=== PATIENT | male | born 1990 | race Caucasian/White ===

== ENCOUNTER 2022-12-06 22:46 | Emergency (ER) | payer OTHER ==
[2022-12-06 22:50] VITALS: BP 111/73; PULSE 77; RESP 20; TEMP 97.9
--- NOTE | 2022-12-06 23:05 | XR ---
EXAMINATION TYPE: XR hand complete LT DATE OF EXAM: 12/06/2022 10:58 PM INDICATION: Patient age:Male; 31 years old; Reason for study: pain; PHH. COMPARISON: None TECHNIQUE: Frontal, lateral and oblique views of the left hand were obtained. FINDINGS: Normal alignment of the visualized joints. No acute osseous pathology is identified. No e vidence of soft tissue swelling. Nonspecific 3 mm linear metallic density within the distal first dig it phalanx. IMPRESSION: 1. No acute osseous pathology. 2. Nonspecific 3 mm linear metallic density within the distal first digit phalanx. Clinical correlat ion is recommended.
--- NOTE | 2022-12-07 00:22 | ED ---
Upper Extremity HPI - General Chief Complaint: Extremity Injury, Upper Stated Complaint: L ring finger injury Time Seen by Provider: 12/07/22 00:02 Source: patient Mode of arrival: ambulatory Limitations: no limitations - History of Present Illness Initial Comments: Patient is a 31-year-old male presenting with chief complaint of finger injury. Patient states that he injured the left ring finger while exercising today. States that it fell out of place and he was "messing with it" in order to pop it back into place. He is still having pain with range of motion. No laceration or abrasion. No numbness or tingling. - Related Data Home Medications Medication Instructions Recorded Confirmed No Known Home Medications 12/06/22 12/06/22 Allergies Allergy/AdvReac Type Severity Reaction Status Date / Time No Known Allergies Allergy Verified 12/06/22 22:50 Review of Systems ROS Statement: Those systems with pertinent positive or pertinent negative responses have been documented in the HPI. ROS Other: All systems not noted in ROS Statement are negative. Past Medical History Past Medical History: No Reported History History of Any Multi-Drug Resistant Organisms: None Reported Past Surgical History: Joint Replacement Additional Past Surgical History / Comment(s): lt thumb Past Psychological History: No Psychological Hx Reported Smoking Status: Never smoker Past Alcohol Use History: None Reported Past Drug Use History: Marijuana General Exam Limitations: no limitations General appearance: alert, in no apparent distress Head exam: Present: atraumatic, normocephalic, normal inspection Eye exam: Present: normal appearance, EOMI. Absent: scleral icterus, periorbital swelling Neck exam: Present: normal inspection, full ROM Extremities exam: Present: other (Left ring finger normal inspection, limited range of motion secondary to pain) Neurological exam: Present: alert, oriented X3, CN II-XII intact Psychiatric exam: Present: normal affect, normal mood Skin exam: Present: warm, dry, intact, normal color. Absent: rash Course Vital Signs 12/06/22 22:47 Temperature 97.9 F Pulse Rate 77 Respiratory 20 Rate Blood Pressure 111/73 O2 Sat by Pulse 99 Oximetry Medical Decision Making - Medical Decision Making Was pt. sent in by a medical professional or institution (, PA, ASSEMBLER WET WASH, urgent care, hospital, or prison...) When possible be specific @ -No Did you speak to anyone other than the patient for history (EMS, parent, family, police, friend...)? What history was obtained from this source @ -No Did you review nursing and triage notes (agree or disagree)? Why? @ -I reviewed and agree with nursing and triage notes Were old charts reviewed (outside hosp., previous admission, EMS record, old EKG, old radiological studies, urgent care reports/EKG's, prison records)? Report findings @ -No old charts were reviewed Differential Diagnosis (chest pain, altered mental status, abdominal pain women, abdominal pain men, vaginal bleeding, weakness, fever, dyspnea, syncope, headache, dizziness, GI bleed, back pain, seizure, CVA, palpatations, mental health, musculoskeletal)? @ -Differential Musculoskeletal Muscular strain, contusion, ligament sprain, fracture, arthritis, septic arthritis, bursitis, cellulitis, muscle spasm, nerve compression, DVT, arterial occlusion, herpes zoster, electrolyte abnormality, tumor.... This is not meant to be in all inclusive list EKG interpreted by me (3pts min.). @ -As above X-rays interpreted by me (1pt min.). @ -None done CT interpreted by me (1pt min.). @ -None done U/S interpreted by me (1pt. min.). @ -None done What testing was considered but not performed or refused? (CT, X-rays, U/S, labs)? Why? @ -None What meds were considered but not given or refused? Why? @ -None Did you discuss the management of the patient with other professionals (professionals i.e. , PA, ASSEMBLER WET WASH, lab, RT, psych nurse, outreach and education social worker, industrial roofer, teacher, botanical technical officer, casino cage manager)? Give summary @ -No Was smoking cessation discussed for >3mins.? @ -No Was critical care preformed (if so, how long)? @ -No Were there social determinants of health that impacted care today? How? (Homelessness, low income, unemployed, alcoholism, drug addiction, transportation, low edu. Level, literacy, decrease access to med. care, nursing home, re hab)? @ -No Was there de-escalation of care discussed even if they declined (Discuss DNR or withdrawal of care, Hospice)? DNR status @ -No What co-morbidities impacted this encounter? (DM, HTN, Smoking, COPD, CAD, Cancer, CVA, ARF, Chemo, Hep., AIDS, mental health diagnosis, sleep apnea, morbid obesity)? @ -None Was patient admitted / discharged? Hospital course, mention meds given and route, prescriptions, significant lab abnormalities, going to OR and other pertinent info. @ -Discharge. Patient is a 31-year-old male presenting with chief complaint of left ring finger injury. X-ray shows no fracture or dislocation. Patient is educated on finger sprain and supportive management. Follow-up with PCP. Report back to ER with any new or worsening symptoms. Discussed return parameters and answered all questions. Patient conveyed verbal understanding and agreed to the plan. I discussed this case in detail with my attending Dr. Lu Undiagnosed new problem with uncertain prognosis? @ -No Drug Therapy requiring intensive monitoring for toxicity (Heparin, Nitro, Insulin, Cardizem)? @ -No Were any procedures done? @ -No Diagnosis/symptom? @ -Finger sprain Acute, or Chronic, or Acute on Chronic? @ -Acute Uncomplicated (without systemic symptoms) or Complicated (systemic symptoms)? @ -Uncomplicated Side effects of treatment? @ -No Exacerbation, Progression, or Severe Exacerbation? @ -No Poses a threat to life or bodily function? How? (Chest pain, [place], [place], pneumonia, PE, COPD, DKA, ARF, appy, cholecystitis, CVA, Diverticulitis, Homicidal, Suicidal, threat to staff... and all critical care pts) @ -No Disposition Clinical Impression: Finger sprain Disposition: HOME SELF-CARE Condition: Good Instructions (If sedation given, give patient instructions): Finger Sprain (ED) Additional Instructions: Report back to ER with any new or worsening symptoms. Take Motrin and Tylenol as needed. Ice and elevate. Is patient prescribed a controlled substance at d/c from ED?: No Referrals: None,Stated [Primary Care Provider] - 1-2 days Time of Disposition: 00:22
== END 2022-12-07 00:34 | disposition home or self-care (01) ==
LOC: EC 22:46
DX: S63.615A Unspecified sprain of left ring finger, initial encounter (principal); F12.90 Cannabis use, unspecified, uncomplicated; X50.9XXA Other and unspecified overexertion or strenuous movements or postures, initial encounter; Y92.39 Other specified sports and athletic area as the place of occurrence of the external cause
CPT/HCPCS: 99283

== ENCOUNTER 2022-12-30 08:55 | Emergency (ER) | payer OTHER ==
[2022-12-30] MEDS ORDERED: KETOROLAC 15 MG/ML 1 ML VIAL IM STA (09:37)
--- NOTE | 2022-12-30 09:44 | ED ---
General Adult HPI - General Chief complaint: Extremity Injury, Upper Stated complaint: Left knee pain Time Seen by Provider: 12/30/22 09:17 Source: patient, RN notes reviewed Mode of arrival: wheelchair Limitations: no limitations - History of Present Illness Initial comments: Patient is 32 year old male presenting to the ER with a chief complaint of left knee pain. Patient states while practicing [employer] yesterday he felt a big pop and instant pain in his left knee. Patient reports he has been having extreme pain and nausea since. Patient reports numbness radiating from his lateral knee and into his 4th and 5th toes since the injury. He reports he is unable to bear weight and having a blanket on his toes is painful. He has taken Motrin fro the pain with slight relief. Denies prior injuries to the knee. Admits to prior back injury from a snowboarding accident. No other complaints at this time. - Related Data Previous Rx's Medication Instructions Recorded Ibuprofen [Motrin] 600 mg PO Q8HR PRN #20 tab 12/30/22 Allergies Allergy/AdvReac Type Severity Reaction Status Date / Time No Known Allergies Allergy Verified 12/30/22 09:17 Review of Systems ROS Statement: Those systems with pertinent positive or pertinent negative responses have been documented in the HPI. ROS Other: All systems not noted in ROS Statement are negative. Past Medical History Past Medical History: No Reported History History of Any Multi-Drug Resistant Organisms: None Reported Past Surgical History: Joint Replacement Additional Past Surgical History / Comment(s): lt thumb Past Psychological History: No Psychological Hx Reported Smoking Status: Never smoker Past Alcohol Use History: None Reported Past Drug Use History: Marijuana General Exam Limitations: no limitations General appearance: alert, in no apparent distress Respiratory exam: Present: normal lung sounds bilaterally. Absent: respiratory distress, wheezes, rales, rhonchi, stridor Cardiovascular Exam: Present: regular rate, normal rhythm, normal heart sounds. Absent: systolic murmur, diastolic murmur, rubs, gallop, clicks Extremities exam: Present: normal inspection, tenderness (posterolateral aspect of left knee), calf tenderness, other (2+ left dorsalis pedis pulse; limited knee flexion and extension; no erythema, ecchymosis or warmth; pain with extension of toes against resistance) Neurological exam: Present: alert, oriented X3 Skin exam: Present: warm, dry, intact, normal color. Absent: rash Course Vital Signs 12/30/22 12/30/22 09:12 10:36 Temperature 98.1 F 98 F Pulse Rate 61 65 Respiratory 17 18 Rate Blood Pressure 105/68 110/71 O2 Sat by Pulse 98 98 Oximetry Medical Decision Making - Medical Decision Making Was pt. sent in by a medical professional or institution (MAYELIN Ackerman, SEPARATING MACHINE OPERATOR, urgent care, hospital, or intermediate...) When possible be specific @ -No Did you speak to anyone other than the patient for history (EMS, parent, family, police, friend...)? What history was obtained from this source @ -No Did you review nursing and triage notes (agree or disagree)? Why? @ -I reviewed and agree with nursing and triage notes Were old charts reviewed (outside hosp., previous admission, EMS record, old EKG, old radiological studies, urgent care reports/EKG's, intermediate records)? Report findings @ -No old charts were reviewed Differential Diagnosis (chest pain, altered mental status, abdominal pain women, abdominal pain men, vaginal bleeding, weakness, fever, dyspnea, syncope, headache, dizziness, GI bleed, back pain, seizure, CVA, palpatations, mental health, musculoskeletal)? @ -Knee sprain, knee strain, ligament tear, meniscus injury EKG interpreted by me (3pts min.). @ -None X-rays interpreted by me (1pt min.). @ -X-ray shows suprapatellar effusion, no bony injury noted CT interpreted by me (1pt min.). @ -None done U/S interpreted by me (1pt. min.). @ -None done What testing was considered but not performed or refused? (CT, X-rays, U/S, labs)? Why? @ -None What meds were considered but not given or refused? Why? @ -None Did you discuss the management of the patient with other professionals (professionals i.e. MAYELIN Ackerman, SEPARATING MACHINE OPERATOR, lab, RT, psych nurse, nephrology social worker, director business management, teacher, public health service officer, case advocate)? Give summary @ -No Was smoking cessation discussed for >3mins.? @ -No Was critical care preformed (if so, how long)? @ -No Were there social determinants of health that impacted care today? How? (Homelessness, low income, unemployed, alcoholism, drug addiction, transportation, low edu. Level, literacy, decrease access to med. care, halfway, rehab)? @ -No Was there de-escalation of care discussed even if they declined (Discuss DNR or withdrawal of care, Hospice)? DNR status @ -No What co-morbidities impacted this encounter? (DM, HTN, Smoking, COPD, CAD, Cancer, CVA, ARF, Chemo, Hep., AIDS, mental health diagnosis, sleep apnea, morbid obesity)? @ -None Was patient admitted / discharged? Hospital course, mention meds given and route, prescriptions, significant lab abnormalities, going to OR and other p ertinent info. @ -Discharge patient was placed in knee immobilizer concern for LCL injury patient will follow-up with orthopedics and return parameters were discussed. Undiagnosed new problem with uncertain prognosis? @ -No Drug Therapy requiring intensive monitoring for toxicity (Heparin, Nitro, Insulin, Cardizem)? @ -No Were any procedures done? @ -No Diagnosis/symptom? @ -Left knee strain, LCL injury Acute, or Chronic, or Acute on Chronic? @ -Acute Uncomplicated (without systemic symptoms) or Complicated (systemic symptoms)? @ -Uncomplicated Side effects of treatment? @ -No Exacerbation, Progression, or Severe Exacerbation? @ -No Poses a threat to life or bodily function? How? (Chest pain, [place], [place], pneumonia, PE, COPD, DKA, ARF, appy, cholecystitis, CVA, Diverticulitis, Homicidal, Suicidal, threat to staff... and all critical care pts) @ -No Disposition Clinical Impression: Sprain of lateral collateral ligament of left knee Disposition: HOME SELF-CARE Condition: Stable Instructions (If sedation given, give patient instructions): Knee Pain (ED) Additional Instructions: Please return to the Emergency Department if symptoms worsen or any other concerns. Prescriptions: Ibuprofen [Motrin] 600 mg PO Q8HR PRN #20 tab PRN Reason: Pain Is patient prescribed a controlled substance at d/c from ED?: No Referrals: None,Stated [Primary Care Provider] - 1-2 days Royal Gray DO [Doctor of Osteopathic Medicine] - 1-2 days Time of Disposition: 10:21
[2022-12-30] MEDS ORDERED: ONDANSETRON ODT 4 MG TAB PO STA (10:02)
--- NOTE | 2022-12-30 10:10 | XR ---
EXAMINATION TYPE: XR knee complete LT DATE OF EXAM: 12/30/2022 CLINICAL HISTORY: pain TECHNIQUE: Three views of the left knee are obtained. COMPARISON: None. FINDINGS: There is no acute fracture/dislocation. The tri-compartment joint spaces appear within no rmal limits. The overlying soft tissue appears unremarkable. Small suprapatellar joint effusion. IMPRESSION: There is no acute fracture or dislocation ICD 10 NO FRACTURE, INITIAL EVALUATION
[2022-12-30 10:37] VITALS: BP 110/71; PULSE 65; RESP 18; TEMP 98
== END 2022-12-30 10:47 | disposition home or self-care (01) ==
LOC: EC 08:55
DX: S83.422A Sprain of lateral collateral ligament of left knee, initial encounter (principal); F12.90 Cannabis use, unspecified, uncomplicated; X50.9XXA Other and unspecified overexertion or strenuous movements or postures, initial encounter
CPT/HCPCS: 73562; 99283; 96372; J1885

== ENCOUNTER 2023-08-29 16:35 | Emergency (ER) | payer OTHER ==
--- NOTE | 2023-08-29 18:00 | ED ---
General Adult HPI - General Source: patient, RN notes reviewed Mode of arrival: ambulatory Limitations: no limitations <Abbey Pedersen - Last Filed: 08/29/23 17:58> <Ne Burnette - Last Filed: 09/02/23 20:17> - General Chief complaint: Abdominal Pain Stated complaint: abd pain Time Seen by Provider: 08/29/23 17:58 - History of Present Illness Initial comments: 32-year-old male presents to the emergency department for evaluation of epigastric abdominal pain x 2 weeks. He states that it has been getting worse o jamari the past couple days. He states that it is worse with eating. He does admit to nausea with vomiting. He does admit to some constipation and has been taking stool softeners. Also reports taking Gas-X, Pepto-Bismol. (Abbey Pedersen) 32-year-old male presents emergency department reporting left upper quadrant abdominal pain. States the pain has been going on for 2 weeks but worsened over the past couple of days. He has been taking some medication such as Gas-X and Pepto-Bismol for symptoms however it has not improved. He denies history of ulcers. States that he is under a lot of stress. No alcohol use. No NSAID use. He has had some nausea with vomiting. Pain is made worse with eating. He denies urinary complaints. No concern for sexually transmitted infections. Does have some constipation. No fevers. No other alleviating, precipitating or modifying factors (Ne Burnette) - Related Data Previous Rx's Medication Instructions Recorded Ibuprofen [Motrin] 600 mg PO Q8HR PRN #20 tab 12/30/22 Famotidine [Pepcid] 40 mg PO DAILY #30 tablet 08/29/23 Omeprazole 20 mg PO DAILY #30 tab 08/29/23 Sucralfate [Carafate] 1 gm PO ACHS #120 tablet 08/29/23 Allergies Allergy/AdvReac Type Severity Reaction Status Date / Time No Known Allergies Allergy Verified 08/29/23 16:51 Review of Systems ROS Other: All systems not noted in ROS Statement are negative. <Abbey Pedersen - Last Filed: 08/29/23 17:58> ROS Other: All systems not noted in ROS Statement are negative. <Ne Burnette - Last Filed: 09/02/23 20:17> ROS Statement: Those systems with pertinent positive or pertinent negative responses have been documented in the HPI. Past Medical History Past Medical History: No Reported History History of Any Multi-Drug Resistant Organisms: None Reported Past Surgical History: Joint Replacement Additional Past Surgical History / Comment(s): lt thumb Past Psychological History: No Psychological Hx Reported Smoking Status: Never smoker Past Alcohol Use History: None Reported Past Drug Use History: Marijuana <Abbey Pedersen - Last Filed: 08/29/23 17:58> General Exam Limitations: no limitations <Abbey Pedersen - Last Filed: 08/29/23 17:58> General appearance: alert, in no apparent distress Head exam: Present: atraumatic, normocephalic, normal inspection Eye exam: Present: normal appearance, PERRL, EOMI. Absent: scleral icterus, conjunctival injection, periorbital swelling ENT exam: Present: normal exam, mucous membranes moist Neck exam: Present: normal inspection. Absent: meningismus, lymphadenopathy Respiratory exam: Present: normal lung sounds bilaterally. Absent: respiratory distress, wheezes, rales, rhonchi, stridor Cardiovascular Exam: Present: regular rate, normal rhythm, normal heart sounds. Absent: systolic murmur, diastolic murmur, rubs, gallop, clicks GI/Abdominal exam: Present: soft, tenderness (Left upper quadrant), normal bowel sounds. Absent: distended, guarding, rebound, rigid Extremities exam: Present: normal inspection, full ROM, normal capillary refill. Absent: tenderness, pedal edema, joint swelling, calf tenderness Back exam: Present: normal inspection Neurological exam: Present: alert, oriented X3, CN II-XII intact Psychiatric exam: Present: normal affect, normal mood Skin exam: Present: warm, dry, intact, normal color. Absent: rash <Ne Burnette - Last Filed: 09/02/23 20:17> - General Exam Comments Initial Comments: Visual Physical Exam Vital signs reviewed General: Well-appearing, nontoxic, no acute distress. Head: Normocephalic, atraumatic Eyes: PERRLA, EOMI ENT: Airway patent Chest: Nonlabored breathing Skin: No visual rash, normal skin tone Neuro: Alert and oriented 3 Musculoskeletal: No gross abnormalities (Abbey Pedersen) Course Vital Signs 08/29/23 08/29/23 08/29/23 16:49 19:49 21:28 Temperature 98.6 F 98.2 F Pulse Rate 93 76 75 Respiratory 16 16 18 Rate Blood Pressure 127/76 135/73 123/78 O2 Sat by Pulse 98 99 98 Oximetry Medical Decision Making <Abbey Pedersen - Last Filed: 08/29/23 17:58> - Lab Data Result diagrams: 08/29/23 18:24 08/29/23 18:24 <Ne Burnette - Last Filed: 09/02/23 20:17> - Medical Decision Making Quick note preformed by Abbey Pedersen PA-C (Abbey Pedersen) Was pt. sent in by a medical professional or institution ([facility]YELIN Ackerman, TRAIN PLANNER, urgent care, hospital, or correction...) When possible be specific @ -No Did you speak to anyone other than the patient for history (EMS, parent, family, police, friend...)? What history was obtained from this source @ -No Did you review nursing and triage notes (agree or disagree)? Why? @ -I reviewed and agree with nursing and triage notes Were old charts reviewed (outside hosp., previous admission, EMS record, old EKG, old radiological studies, urgent care reports/EKG's, correction records)? Report findings @ -No old charts were reviewed Differential Diagnosis (chest pain, altered mental status, abdominal pain women, abdominal pain men, vaginal bleeding, weakness, fever, dyspnea, syncope, headache, dizziness, GI bleed, back pain, seizure, CVA, palpatations, mental health, musculoskeletal)? @ -Differential Abdominal Pain Men: Appendicitis, cholecystitis, diverticulosis, ischemic bowel, pancreatitis, hepatitis, UTI, gastroenteritis, AAA, incarcerated hernia, bowel obstruction, constipation, inflammatory bowel, hepatitis, peptic ulcer disease, splenic infarction, perforated viscus, testicular torsion, this is not meant to be an al l-inclusive list EKG interpreted by me (3pts min.). @ -Not done X-rays interpreted by me (1pt min.). @ -None done CT interpreted by me (1pt min.). @ -None done U/S interpreted by me (1pt. min.). @Yes and demonstrates no abnormal findings What testing was considered but not performed or refused? (CT, X-rays, U/S, labs)? Why? @ -None What meds were considered but not given or refused? Why? @ -None Did you discuss the management of the patient with other professionals (professionals i.e. , PA, TRAIN PLANNER, lab, RT, psych nurse, social media job titles, willow machine tender, teacher, jail officer, onsite case manager)? Give summary @ -No Was smoking cessation discussed for >3mins.? @ -No Was critical care preformed (if so, how long)? @ -No Were there social determinants of health that impacted care today? How? (Homeles sness, low income, unemployed, alcoholism, drug addiction, transportation, low edu. Level, literacy, decrease access to med. care, assisted, rehab)? @ -No Was there de-escalation of care discussed even if they declined (Discuss DNR or withdrawal of care, Hospice)? DNR status @ -No What co-morbidities impacted this encounter? (DM, HTN, Smoking, COPD, CAD, Cancer, CVA, ARF, Chemo, Hep., AIDS, mental health diagnosis, sleep apnea, morbid obesity)? @ -None Was patient admitted / discharged? Hospital course, mention meds given and route, prescriptions, significant lab abnormalities, going to OR and other pertinent info. @ -Discharge. Upon arrival patient seen and evaluated in [place] [id number]. Thorough history and physical exam was performed. IV is established and laboratory studies are conducted. GI cocktail given. Ultrasound is performed. Results are discussed with the patient. There is high concern for peptic ulcer. Discussed treatment plan as well as dietary restrictions. No NSAIDs or alcohol. Patient must call to make an appointment for an EGD. Return for any new or worsening symptoms. Patient agreeable this plan he was discharged in stable condition Undiagnosed new problem with uncertain prognosis? @ -Yes Drug Therapy requiring intensive monitoring for toxicity (Heparin, Nitro, Insulin, Cardizem)? @ -No Were any procedures done? @ -No Diagnosis/symptom? @ -Acute left upper quadrant abdominal pain, possible gastritis versus ulcer Acute, or Chronic, or Acute on Chronic? @ -Acute Uncomplicated (without systemic symptoms) or Complicated (systemic symptoms)? @ -Complicated Side effects of treatment? @ -No Exacerbation, Progression, or Severe Exacerbation? @ -No Poses a threat to life or bodily function? How? (Chest pain, [place], [place], pneumonia, PE, COPD, DKA, ARF, appy, cholecystitis, CVA, Diverticulitis, Homicidal, Suicidal, threat to staff... and all critical care pts) @ -No (Ne Burnette) - Lab Data Lab Results 08/29/23 08/29/23 08/29/23 Range/Units 18:24 18:24 18:24 WBC 13.0 H (3.8-10.6) k/uL RBC 5.07 (4.30-5.90) m/uL Hgb 15.8 (13.0-17.5) gm/dL Hct 46.4 (39.0-53.0) % MCV 91.5 (80.0-100.0) fL MCH 31.1 (25.0-35.0) pg MCHC 34.0 (31.0-37.0) g/dL RDW 12.7 (11.5-15.5) % Plt Count 174 (150-450) k/uL MPV 9.5 Neutrophils % (Manual) 39 % Lymphocytes % (Manual) 23 % Monocytes % (Manual) 4 % Eosinophils % (Manual) 34 % Neutrophils # (Manual) 5.07 (1.3-7.7) k/uL Lymphocytes # (Manual) 2.99 (1.0-4.8) k/uL Monocytes # (Manual) 0.52 (0-1.0) k/uL Eosinophils # (Manual) 4.42 H (0-0.7) k/uL Nucleated RBCs 0 (0-0) /100 WBC Manual Slide Review Performed Sodium 139 (137-145) mmol/L Potassium 4.4 (3.5-5.1) mmol/L Chloride 100 (98-107) mmol/L Carbon Dioxide 31 H (22-30) mmol/L Anion Gap 8 mmol/L BUN 18 (9-20) mg/dL Creatinine 0.86 (0.66-1.25) mg/dL Est GFR (CKD-EPI)AfAm >90 (>60 ml/min/1.73 sqM) Est GFR (CKD-EPI)NonAf >90 (>60 ml/min/1.73 sqM) Glucose 85 (74-99) mg/dL Plasma Lactic Acid Fabricio 1.2 (0.7-2.0) mmol/L Calcium 10.1 (8.4-10.2) mg/dL Total Bilirubin 0.4 (0.2-1.3) mg/dL AST 30 (17-59) U/L ALT 23 (4-49) U/L Alkaline Phosphatase 53 (38-126) U/L Total Protein 6.9 (6.3-8.2) g/dL Albumin 4.4 (3.5-5.0) g/dL Amylase 59 (30-110) U/L Lipase 49 (23-300) U/L Urine Color Urine Appearance (Clear) Urine pH (5.0-8.0) Ur Specific Cameron (1.001-1.035) Urine Protein (Negative) Urine Glucose (UA) (Negative) Urine Ketones (Negative) Urine Blood (Negative) Urine Nitrite (Negative) Urine Bilirubin (Negative) Urine Urobilinogen (<2.0) mg/dL Ur Leukocyte Esterase (Negative) Urine RBC (0-5) /hpf Urine WBC (0-5) /hpf 08/29/23 Range/Units 19:30 WBC (3.8-10.6) k/uL RBC (4.30-5.90) m/uL Hgb (13.0-17.5) gm/dL Hct (39.0-53.0) % MCV (80.0-100.0) fL MCH (25.0-35.0) pg MCHC (31.0-37.0) g/dL RDW (11.5-15.5) % Plt Count (150-450) k/uL MPV Neutrophils % (Manual) % Lymphocytes % (Manual) % Monocytes % (Manual) % Eosinophils % (Manual) % Neutrophils # (Manual) (1.3-7.7) k/uL Lymphocytes # (Manual) (1.0-4.8) k/uL Monocytes # (Manual) (0-1.0) k/uL Eosinophils # (Manual) (0-0.7) k/uL Nucleated RBCs (0-0) /100 WBC Manual Slide Review Sodium (137-145) mmol/L Potassium (3.5-5.1) mmol/L Chloride (98-107) mmol/L Carbon Dioxide (22-30) mmol/L Anion Gap mmol/L BUN (9-20) mg/dL Creatinine (0.66-1.25) mg/dL Est GFR (CKD-EPI)AfAm (>60 ml/min/1.73 sqM) Est GFR (CKD-EPI)NonAf (>60 ml/min/1.73 sqM) Glucose (74-99) mg/dL Plasma Lactic Acid Fabricio (0.7-2.0) mmol/L Calcium (8.4-10.2) mg/dL Total Bilirubin (0.2-1.3) mg/dL AST (17-59) U/L ALT (4-49) U/L Alkaline Phosphatase (38-126) U/L Total Protein (6.3-8.2) g/dL Albumin (3.5-5.0) g/dL Amylase (30-110) U/L Lipase (23-300) U/L Urine Color Colorless Urine Appearance Cloudy (Clear) Urine pH 7.5 (5.0-8.0) Ur Specific Cameron 1.010 (1.001-1.035) Urine Protein Negative (Negative) Urine Glucose (UA) Negative (Negative) Urine Ketones Negative (Negative) Urine Blood Negative (Negative) Urine Nitrite Negative (Negative) Urine Bilirubin Negative (Negative) Urine Urobilinogen <2.0 (<2.0) mg/dL Ur Leukocyte Esterase Negative (Negative) Urine RBC <1 (0-5) /hpf Urine WBC 1 (0-5) /hpf Disposition <Abbey Pedersen - Last Filed: 08/29/23 17:58> Is patient prescribed a controlled substance at d/c from ED?: No Time of Disposition: 21:21 <Ne Burnette - Last Filed: 09/02/23 20:17> Clinical Impression: Epigastric pain Disposition: HOME SELF-CARE Condition: Stable Instructions (If sedation given, give patient instructions): Epigastric Pain (ED) Additional Instructions: I think you need an EGD. Please call one of the provided doctors to attempt to schedule this procedure. In the meantime take the medications I have prescribed. Return for any new or worsening symptoms Prescriptions: Sucralfate [Carafate] 1 gm PO ACHS #120 tablet Omeprazole 20 mg PO DAILY #30 tab Famotidine [Pepcid] 40 mg PO DAILY #30 tablet Referrals: None,Stated [Primary Care Provider] - 1-2 days Jer Yoo MD [STAFF PHYSICIAN] - 1-2 days Obed Teague MD [Medical Doctor] - 1-2 days Idalia Asencio MD [STAFF PHYSICIAN] - 1-2 days Flor Kumar MD [STAFF PHYSICIAN] - 1-2 days Curry Carpio DO [REFERRING] - 1-2 days
[2023-08-29 18:52] LABS: HCT 46.4 % (39.0-53.0); HGB 15.8 gm/dL (13.0-17.5); MCH 31.1 pg (25.0-35.0); MCV 91.5 fL (80.0-100.0); Mean Platelet Volume 9.5; Platelet Count 174 k/uL (150-450); RBC 5.07 m/uL (4.30-5.90); RDW 12.7 % (11.5-15.5)
[2023-08-29 19:04] LABS: ALT 23 U/L (4-49); AST 30 U/L (17-59); African American GFR (CKD) >90 (>60 ml/min/1.73 sqM); Albumin 4.4 g/dL (3.5-5.0); Alkaline Phosphatase 53 U/L (38-126); Amylase 59 U/L (30-110); Anion Gap 8 mmol/L; Blood Urea Nitrogen 18 mg/dL (9-20); Calcium 10.1 mg/dL (8.4-10.2); Carbon Dioxide 31 mmol/L (22-30); Chloride 100 mmol/L (98-107); Glucose 85 mg/dL (74-99); Lipase 49 U/L (23-300); Non-African American GFR(CKD) >90 (>60 ml/min/1.73 sqM); Potassium 4.4 mmol/L (3.5-5.1); Sodium 139 mmol/L (137-145); Total Bilirubin 0.4 mg/dL (0.2-1.3); Total Protein 6.9 g/dL (6.3-8.2)
[2023-08-29 19:50] LABS: Eosinophils # (M) 4.42 k/uL (0-0.7); Lymphocytes # (M) 2.99 k/uL (1.0-4.8); Monocytes # (M) 0.52 k/uL (0-1.0); Neutrophils # (M) 5.07 k/uL (1.3-7.7); Neutrophils % (M) 39 %; Nucleated Red Blood Cells 0 /100 WBC (0-0); Total Cells Counted 100
[2023-08-29] MEDS: FAMOTIDINE 20 MG/2 ML VIAL IV STA (19:55)
[2023-08-29] MEDS: MAG HYDROX/AL HYDROX/SIMETH 30 ML, HYOSCYAMINE ELIXIR 10 ML, LIDOCAINE VISCOUS 2% 10 ML PO STA (19:55)
[2023-08-29 20:00] LABS: Appearance,Urine Cloudy (Clear); Bilirubin,Urine Negative (Negative); Blood,Urine Negative (Negative); Color,Urine Colorless; Glucose,Urine (UA) Negative (Negative); Ketones,Urine Negative (Negative); Leukocyte Esterase,Urine Negative (Negative); Nitrite,Urine Negative (Negative); PH, Urine 7.5 (5.0-8.0); Protein,Urine Negative (Negative); RBC,Urine <1 /hpf (0-5); Urobilinogen,Urine <2.0 mg/dL (<2.0); WBC,Urine 1 /hpf (0-5)
--- NOTE | 2023-08-29 20:04 | US ---
EXAMINATION TYPE: US gallbladder DATE OF EXAM: 08/29/2023 COMPARISON: NONE CLINICAL INDICATION: Male, 32 years old with history of abd pain, nausea and vomiting; Abd pain, N/V. Pt states he has lost almost 10lbs because he cannot keep food down TECHNIQUE: Multiple sonographic images of the right upper quadrant are obtained. FINDINGS: Liver Length: 15.3 cm Gallbladder Wall: 0.21 cm CBD: 0.41 cm Right Kidney: 11.4 x 5.2 x 4.7 cm Pancreas: wnl Liver: wnl Gallbladder: wnl Evidence for sonographic Hernandez's sign: No CBD: wnl . Common duct caliber normal at 4 mm. Right Kidney: No hydronephrosis. IMPRESSION: No acute process.
[2023-08-29 20:11] VITALS: TEMP 98.2
[2023-08-29 21:36] VITALS: BP 123/78; PULSE 75; RESP 18
== END 2023-08-29 21:34 | disposition home or self-care (01) ==
LOC: EC 16:35
DX: R10.13 Epigastric pain (principal); F12.90 Cannabis use, unspecified, uncomplicated
CPT/HCPCS: 36415; 80053; 82150; 83605; 83690; 85025; 81001; 76705; 99284; 96374; J3490